=== PATIENT | female | born 1975 | race Caucasian/White ===

== ENCOUNTER → 2018-05-13 09:40 | Outpatient (CLI) | payer BC, SELFPAY ==
--- NOTE | 2018-05-13 09:45 | MM_ITS ---
MM Dig screening mamm BI w/CAD CAD Screening ORDERING PHYSICIAN : Missy Allen PATIENT AGE: 42 years GENDER: Female COMPARISON: Baseline mammogram with no previous for comparison. INDICATION: Baseline. No hormones. No new complaints. Noncontributory family history. TECHNIQUE: Standard CC and MLO images were obtained. R2 CAD reviewed. FINDINGS: Moderate breast density Moderately dense, heterogeneous breast tissue patterns bilaterally, with mild asymmetry. These decrease sensitivity mammography. RIGHT BREAST: Vague Area of focal increased density labeled X central right breast. Warrants spot views and ultrasound. It measures approximately 15 mm. May merely be summation shadow it a spot view should include CC, MLO and 90 degree image. .. LEFT BREAST: Dense left breast with no significant new features. Question some small calcifications centrally left breast seen on cc view. But these would benefit from spot views to determine if if persist and to further evaluate if so. They're not seen on current MLO view There is mild motion artifact both on the current left MLO view and right cc view. Which should be addressed by follow-up views as well IMPRESSION: ...... Dense breast tissue bilaterally decreases sensitivity of mammography 1. Right BREAST .. 1.5 cm vague area of increased density at the central right breast warrants spot views and ultrasound to further evaluate. May merely be summation shadow 2. Left BREAST .Motion artifact on current MLO view. It should be repeated . There is question some faint calcifications central left breast which would benefit from magnification CC and 90 degree view as well when the patient returns. BI-RADS Category: 0 Need Additional Imaging Evaluaiton RECOMMENDED FOLLOW-UP: IMM - IMMEDIATE FOLLOW-UP RECOMMENDED (A letter has been sent to the patient regarding results of the study.)
== END ==
PROVIDERS: Family Provider Family Medicine; PCP Family Medicine; Visit Provider Obstetrics & Gynecology
DX: Z12.31 Encounter for screening mammogram for malignant neoplasm of breast (principal)
CPT/HCPCS: 77067

== ENCOUNTER → 2021-08-02 10:32 | Outpatient (CLI) | payer BC, SELFPAY | PROVIDERS: PCP Family Medicine; Visit Provider Nurse Practitioner | DX: U07.1 COVID-19 (principal) | CPT/HCPCS: C9803; U0003; U0005 ==

== ENCOUNTER 2024-11-26 16:54 | Observation (INO) | payer BC, SELFPAY ==
[2024-11-26 17:29] VITALS: BP 130/60; PULSE 80; O2SAT 98
[2024-11-26 17:30] VITALS: BP 142/59; PULSE 78; O2SAT 95
[2024-11-26 17:34] VITALS: BP 130/60; PULSE 77; RESP 19; TEMP 36.5; O2SAT 97; BMI 29.0
--- NOTE | 2024-11-26 17:45 | HMH.EDGENADL ---
Discharge Plan Disposition Patient Disposition: Admitted Prescriptions Prescriptions: No Action diclofenac sodium [Voltaren] 1 % gel 4 g TOPICAL QID Qty: 30 2RF Rx Instructions: apply to single knee, ankle, foot; gently massage into area; for foot includes sole/toes/top of foot Referrals Follow up/Referrals: Provider,Referral, [Referring] - See instructions Clinical Impressions Clinical Impression: Abnormal uterine bleeding, Thickened endometrium, UTI (urinary tract infection) Instructions Patient Instructions: DI for Acute Abdominal Pain Print Language Print Language: Armenian Discharge ED Provider: Shahla Krause General Adult HPI <VICK Stevenson - Last Filed: 11/26/24 18:54> General Chief complaint: Abdominal Pain Stated complaint: abdominal pain Time Seen by Provider: 11/26/24 17:45 Mode of Arrival: Ambulatory Source of Information: Patient Limitations: No Limitations Description of Symptoms (Recalled from ER Triage Doc. by RN): c/o lower abdomen and back pain that started yesterday. Denies any difficulty with urination or frequency. STates the pain did go away for about 15 minutes then returned. 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 She has been irregular for the last 3 months and believes she is going through menopause. History of normal Pap smears in the past but stopped having Pap smears around COVID. Her [employer]IDENT[employer] doctor is in [place] she attempted to follow-up with her [employer]IDENTIAL [employer] TECHNICIAN doctor and he told her that it would be 6 months before she could be seen. She denies any urinary symptoms any purulent drainage or discharge from her vagina no fevers or chills. Pain is severe. PFSH <VICK Stevenson - Last Filed: 11/26/24 18:54> PFSH Disclaimer: The information contained in this section may have been updated after the patient was seen, as this information can be updated by other users. Social History Smoking Status: Former smoker alcohol intake: current alcohol intake frequency: holidays/special occasions only substance use type: denies use current occupational status: employed Travel in the last 8 weeks: None Have you lived/traveled outside [place] in past 30 days?: No Contact w/someone who lives/traveled outside US past 30 days?: No Exposure to someone with infectious disease in past 14 days?: No Do you have a fever (greater than 100.4 F or 38 C)?: No Have you tested positive for COVID-19: No Exposed to someone with COVID-19 in past 14 days?: No Do you have a sore throat?: No Do you have a cough?: No Do you have any weakness?: No Do you have any diarrhea?: No Are you experiencing any unusual bleeding?: No Do you have any muscle aches/pain?: No Do you have any abdominal pain?: Yes Are you experiencing loss of taste or smell?: No <VICK Stevenson - Last Filed: 11/26/24 18:54> ROS Obtained: Yes Systems reviewed as appropriate & no additional complaints except as documented Physical Exam <VICK Stevenson - Last Filed: 11/26/24 18:54> General General appearance: alert and in no apparent distress Head Head exam: atraumatic and normal inspection Eye Eye exam: Present normal appearance, PERRL and EOMI ENT ENT exam: Present normal exam, normal oropharynx and mucous membranes moist Neck Neck exam: Present normal inspection, full ROM and trachea midline; Absent lymphadenopathy Chest Chest inspection: Present normal inspection and symmetric chest wall rise Respiratory Respiratory exam: Present normal lung sounds bilaterally; Absent accessory muscle use Cardiovascular Cardiovascular exam: Present regular rate, normal rhythm, normal heart sounds, +S1 and +S2 Abdominal Exam Abdominal exam: Present soft and normal bowel sounds; Absent tenderness, guarding or rebound Extremities Exam Extremities exam: Present normal inspection and full ROM Neurological Exam Neurological exam: Present alert, oriented X3 and CN II-XII intact Psychiatric Psychiatric exam: Present normal affect and normal mood Skin Skin exam: Present warm, dry and normal color Lymphatic Lymphatic Findings: no adenopathy Medical Decision Making <VICK Stevenson - Last Filed: 11/26/24 18:54> Medical Records Screening: Per USPSTF and CDC recommendations, given the prevalence of disease in our region, it is our hospital?s policy to screen for HIV and viral Hepatitis for all patients aged 18 and over and those with ongoing risk factors. Vital Signs: 11/26/24 17:29 11/26/24 17:30 11/26/24 17:34 Temperature 97.7 F Temperature Source Oral Pulse Rate 80 78 Pulse Rate [Left Radial] 77 Respiratory Rate 19 Blood Pressure 130/60 142/59 H Blood Pressure [Right Arm] 130/60 Blood Pressure Mean [Right Arm] 83 02 Sat by Pulse Oximetry 98 95 97 Oxygen Delivery Method Room Air Lab Data Lab Results 11/26/24 17:35: WBC 8.7, RBC 4.30, Hgb 13.5, Hct 38.9, MCV 90.5, MCH 31.4 H, MCHC 34.7, RDW 12.1, Plt Count 266, MPV 10.4, Neut % (Auto) 80.4 H, Lymph % (Auto) 13.4, [place] % (Auto) 4.6, Eos % (Auto) 0.6, Baso % (Auto) 0.7, Neut # (Auto) 7.0, Lymph # (Auto) 1.2, [place] # (Auto) 0.4, Eos # (Auto) 0.1, Baso # (Auto) 0.1, Sodium 138, Potassium 3.7, Chloride 105, Carbon Dioxide 25, Anion Gap 11.7, BUN 11, Creatinine 0.70, Estimated Creat Clear 127, Estimated GFR 89, Est GFR ( Amer) 107, Glucose 135 H, Calcium 8.9, Total Bilirubin 0.4, AST 26, ALT 18, Alkaline Phosphatase 88, Total Protein 6.6, Albumin 4.2, Globulin 2.4, Albumin/Globulin Ratio 1.8, Serum HCG, Qual Negative, HIV Ag/Ab Combo Qual Negative 11/26/24 17:37: Urine Color Red, Urine Appearance Turbid, Urine pH 7.5, Ur Specific [place] 1.020, Urine Protein 3+ A, Urine Glucose (UA) Trace, Urine Ketones 1+, Urine Blood 3+ A, Urine Nitrate Positive A, Urine Bilirubin Negative, Urine Urobilinogen 4.0, Ur Leukocyte Esterase 2+ A, Urine RBC Tntc, Urine WBC 20-50, Ur Squamous Epith Cells Occasional, Urine Bacteria Trace 11/26/24 17:35 11/26/24 17:35 Orders (Tests/Meds): ED MEDICATIONS Generic Name Dose Route Start Last Admin Trade Name Minoo PRN Reason Stop Dose Admin Lactated Ringer's 1,000 mls @ 999 mls/hr 11/26/24 19:00 Lactated Ringer's 1000 Ml Bag IV 11/26/24 20:00 .Q1H1M CAT Sodium Chloride 10 ml 11/26/24 18:16 11/26/24 18:16 Sodium Chloride 0.9% 10ml Syr (Rad Only) IV 12/26/24 18:15 10 ml NEEDED PRN Administration Maintain IV Site Discontinued Medications Generic Name Dose Route Start Last Admin Trade Name Minoo PRN Reason Stop Dose Admin Iopamidol 75 ml 11/26/24 18:16 11/26/24 18:16 Iopamidol-370 (76%);100ml Bottle IV 11/26/24 18:17 75 ml ONCE ONE Administration Ketorolac Tromethamine 15 mg 11/26/24 17:52 11/26/24 17:59 Ketorolac 30mg/Ml Vial IV 11/26/24 17:53 15 mg ONCE ONE Administration Medroxyprogesterone Acetate 10 mg 11/26/24 18:57 Medroxyprogesterone Acetate 2.5mg Tablet PO 11/26/24 18:58 ONCE ONE Morphine Sulfate 4 mg 11/26/24 18:56 Morphine 4mg/Ml Syringe IV 11/26/24 18:57 ONCE ONE Ondansetron HCl 4 mg 11/26/24 18:56 Ondansetron 4mg/2ml Vial IV 11/26/24 18:57 ONCE ONE ORDERS Category Date Time Status CT abdomen pelvis w con Stat Cat Scan 11/26/24 17:52 Completed Complete Blood Count Auto Diff Stat Lab 11/26/24 17:35 Completed Comprehensive Metabolic Panel Stat Lab 11/26/24 17:35 Completed HCG Qualitative, Serum Stat Lab 11/26/24 17:35 Completed HIV Combo Stat Lab 11/26/24 17:35 Completed Hepatitis C Ab Qual. W/ RFX Stat Lab 11/26/24 17:35 Received UA [Urinalysis and Microscopic] Stat Lab 11/26/24 17:37 Completed Urine Culture Stat Micro 11/26/24 17:37 Received Medical Decision Narrative: In summary patient is a [age, sex] who presents to the emergency department for evaluation of [complaint]. Patient is [hemodynamically stable/unstable] upon arrival, [febrile/afebrile]. [Unremarkable physical exam, nonfocal exam versus focal remarkable exam]. Differential diagnosis includes [DDx]. Initial workup will be conducted with [hematologic labs, imaging, respiratory swab, describe workup]. Initial interventions include [crystalloid bolus, medications, p.o. challenge, etc.] initial workup reviewed by me [hematologic labs are remarkable for... Imaging remarkable for... Urinalysis remarkable for]. Upon repeat evaluation [patient had acceptable resolution of symptoms, had persistent pain for which additional interventions were conducted (describe interventions), tolerated p.o., was ambulatory, etc.]. Given this [patient is appropriate for discharge at this time and will be discharged with a prescription for... The case was discussed with hospital medicine regarding management and they will admit the patient their service for continued evaluation at this time... Etc.] Places where you can increase complexity: I informally interpreted the patient's chest x-ray or CT read and is remarkable for... Documenting what the pvc monitor shows with rate and rhythm Consideration of test but deferring. Ex: I considered chest x-ray on this patient however given that they have no oxygen requirement and are clear to auscultation all lung parsons will be deferred. Social determinants of health: Given that patient is undomiciled increases complexity. Given that patient has polysubstance abuse compounds all aspects of care <Shahla Krause MD - Last Filed: 11/26/24 19:05> Arpit Inquiry Pt receiving controlled substance: No Vital Signs: 11/26/24 17:29 11/26/24 17:30 11/26/24 17:34 Temperature 97.7 F Temperature Source Oral Pulse Rate 80 78 Pulse Rate [Left Radial] 77 Respiratory Rate 19 Blood Pressure 130/60 142/59 H Blood Pressure [Right Arm] 130/60 Blood Pressure Mean [Right Arm] 83 02 Sat by Pulse Oximetry 98 95 97 Oxygen Delivery Method Room Air Lab Data Lab results reviewed: Yes I reviewed the patient's lab results. Lab Results 11/26/24 17:35: WBC 8.7, RBC 4.30, Hgb 13.5, Hct 38.9, MCV 90.5, MCH 31.4 H, MCHC 34.7, RDW 12.1, Plt Count 266, MPV 10.4, Neut % (Auto) 80.4 H, Lymph % (Auto) 13.4, [place] % (Auto) 4.6, Eos % (Auto) 0.6, Baso % (Auto) 0.7, Neut # (Auto) 7.0, Lymph # (Auto) 1.2, [place] # (Auto) 0.4, Eos # (Auto) 0.1, Baso # (Auto) 0.1, Sodium 138, Potassium 3.7, Chloride 105, Carbon Dioxide 25, Anion Gap 11.7, BUN 11, Creatinine 0.70, Estimated Creat Clear 127, Estimated GFR 89, Est GFR ( Amer) 107, Glucose 135 H, Calcium 8.9, Total Bilirubin 0.4, AST 26, ALT 18, Alkaline Phosphatase 88, Total Protein 6.6, Albumin 4.2, Globulin 2.4, Albumin/Globulin Ratio 1.8, Serum HCG, Qual Negative, HIV Ag/Ab Combo Qual Negative 11/26/24 17:37: Urine Color Red, Urine Appearance Turbid, Urine pH 7.5, Ur Specific [place] 1.020, Urine Protein 3+ A, Urine Glucose (UA) Trace, Urine Ketones 1+, Urine Blood 3+ A, Urine Nitrate Positive A, Urine Bilirubin Negative, Urine Urobilinogen 4.0, Ur Leukocyte Esterase 2+ A, Urine RBC Tntc, Urine WBC 20-50, Ur Squamous Epith Cells Occasional, Urine Bacteria Trace Orders (Tests/Meds): ED MEDICATIONS Generic Name Dose Route Start Last Admin Trade Name Freq PRN Reason Stop Dose Admin Lactated Ringer's 1,000 mls @ 999 mls/hr 11/26/24 19:00 Lactated Ringer's 1000 Ml Bag IV 11/26/24 20:00 .Q1H1M CAT Sodium Chloride 10 ml 11/26/24 18:16 11/26/24 18:16 Sodium Chloride 0.9% 10ml Syr (Rad Only) IV 12/26/24 18:15 10 ml NEEDED PRN Administration Maintain IV Site Discontinued Medications Generic Name Dose Route Start Last Admin Trade Name Freq PRN Reason Stop Dose Admin Iopamidol 75 ml 11/26/24 18:16 11/26/24 18:16 Iopamidol-370 (76%);100ml Bottle IV 11/26/24 18:17 75 ml ONCE ONE Administration Ketorolac Tromethamine 15 mg 11/26/24 17:52 11/26/24 17:59 Ketorolac 30mg/Ml Vial IV 11/26/24 17:53 15 mg ONCE ONE Administration Medroxyprogesterone Acetate 10 mg 11/26/24 18:57 Medroxyprogesterone Acetate 2.5mg Tablet PO 11/26/24 18:58 ONCE ONE Morphine Sulfate 4 mg 11/26/24 18:56 Morphine 4mg/Ml Syringe IV 11/26/24 18:57 ONCE ONE Ondansetron HCl 4 mg 11/26/24 18:56 Ondansetron 4mg/2ml Vial IV 11/26/24 18:57 ONCE ONE ORDERS Category Date Time Status CT abdomen pelvis w con Stat Cat Scan 11/26/24 17:52 Completed Complete Blood Count Auto Diff Stat Lab 11/26/24 17:35 Completed Comprehensive Metabolic Panel Stat Lab 11/26/24 17:35 Completed HCG Qualitative, Serum Stat Lab 11/26/24 17:35 Completed HIV Combo Stat Lab 11/26/24 17:35 Completed Hepatitis C Ab Qual. W/ RFX Stat Lab 11/26/24 17:35 Received UA [Urinalysis and Microscopic] Stat Lab 11/26/24 17:37 Completed Urine Culture Stat Micro 11/26/24 17:37 Received Medical Decision Narrative: Patient with above history and physical. With significant lower back pain and abdominal discomfort CT scan was performed to rule out any type of intra abdominal pathology that would be surgical in nature or require intervention such as kidney stone bowel obstruction intra-abdominal abscess etc. CT scan was performed and I personally interpreted this which shows a very thickened endometrial lining maximal thickness about 33 mm at the superior dome on the inferior margin of the uterus. There is fluid-filled uterus consistent with her history of bleeding. Clinically I do not think this is endometritis she also recently has not been and has no other signs or symptoms of infectious process at this point. She states that she has been bleeding through a pad every 30 minutes. With this brisk amount of bleeding in the amount of pain that she is in currently as well as the abnormal CT scan I discussed the case with Dr. Flanagan and she gave us 3 options. First was to start some oral medications and have her follow-up closely outpatient second would be possible IV estrogen versus IV medroxyprogesterone to be followed by inpatient D&C in the morning. I discussed this with the patient and given the amount of pain that she is and she wished to be admitted also with a concern of possible cancer which is unlikely but remains on the differential she would like to go ahead and get evaluated sooner rather than later. Therefore she will be placed in the hospital n.p.o. at midnight Dr. Shields likely will take her to the operating room around 7:30 in the morning. Patient is agreeable to this plan. Specifically she wanted 10 mg of Provera to be given in the ED. Additional pain medicine has also been administered. Of note patient does have urine that appears to be infected but could be locally inflamed from the uterus itself could be contaminant but we will go ahead and treat with a dose of Zosyn as uterine infection has not been definitively ruled out at this point. Critical Care <Shahla Krause MD - Last Filed: 11/26/24 19:05> Critical Care Time Critical Care Time: Yes Attestation: On 11/26/24, the high probability of a clinically significant, sudden or life threatening deterioration of the following system(s) required my full and direct attention, intervention and personal management. The time I documented below is in addition to time spent performing reported procedures but includes the following listed in this critical care notation. Total Time Total Critical Care Time: 35
--- NOTE | 2024-11-26 17:52 | CT_ITS ---
PROCEDURE INFORMATION: Exam: CT Abdomen And Pelvis With Contrast Exam date and time: 11/26/2024 6:12 PM Age: 49 years old Clinical indication: Abdominal pain; Additional info: Acute abdominal pain, vaginal bleeding TECHNIQUE: Imaging protocol: Computed tomography of the abdomen and pelvis with contrast. Radiation optimization: All CT scans at this facility use at least one of these dose optimization techniques: automated exposure control; mA and/or kV adjustment per patient size (includes targeted exams where dose is matched to clinical indication); or iterative reconstruction. Contrast material: ISOVUE; Contrast volume: 75 ml; Contrast route: IV; COMPARISON: No relevant prior studies available. FINDINGS: Liver: Decreased density throughout the liver compatible with hepatic steatosis. Hypodensities within the liver too small to characterize. Gallbladder and biliary ducts: Gallbladder unremarkable Pancreas: Pancreas unremarkable Spleen: Splenic granuloma Adrenal glands: Adrenal glands unremarkable. Kidneys and ureters: Punctate nonobstructing calculus lower pole left kidney. No hydronephrosis. Stomach and bowel: Unremarkable. No obstruction. No mucosal thickening. Appendix: Appendix unremarkable Intraperitoneal space: Unremarkable. No free air. No significant fluid collection. Vasculature: Unremarkable. No abdominal aortic aneurysm. Lymph nodes: Unremarkable. No enlarged lymph nodes. Urinary bladder: Unremarkable as visualized. Reproductive: Prominent fluid collection in the region of the lower uterine segment and cervix. Findings compatible with history of vaginal bleeding. Mild irregularity of the endometrium in the region of the fundus. A mass could not be entirely excluded. Recommend follow-up with combined transabdominal and endovaginal sonography. Alternatively consider magnetic resonance imaging for further evaluation. Bones/joints: Unremarkable. No acute fracture. Soft tissues: Fat filled umbilical hernia IMPRESSION: 1. Prominent fluid collection in the region of the lower uterine segment and cervix. Findings compatible with history of vaginal bleeding. 2. Mild irregularity of the endometrium in the region of the fundus. A mass could not be entirely excluded. Recommend follow-up with combined transabdominal and endovaginal sonography. Alternatively consider magnetic resonance imaging for further evaluation.
[2024-11-26 17:55] LABS: Microscopic, Urine URINE MICROSCOPIC (MICROSCOPIC)
[2024-11-26 17:56] LABS: Basophils # 0.1 K/mm3 (0-0.2); Basophils % 0.7 % (0.1-2.0); Eosinophils # 0.1 K/mm3 (0.0-0.4); Eosinophils % 0.6 % (0.1-12.0); Hematocrit 38.9 % (37.0-47.0); Hemoglobin 13.5 g/dL (12.2-16.2); Lymphocytes # 1.2 K/mm3 (0.7-4.5); Lymphocytes % 13.4 % (10-50); Mean Corpuscular HGB Conc 34.7 g/dL (31.8-35.4); Mean Corpuscular Hemoglobin 31.4 pg (27.0-31.2); Mean Corpuscular Volume 90.5 fl (81-99); Mean Platelet Volume 10.4 fl (7.4-10.4); Monocytes # 0.4 K/mm3 (0.1-1.0); Monocytes % 4.6 % (1.7-9.3); Neutrophils % 80.4 % (37.0-80.0); Platelet Count 266 K/mm3 (142-424); Red Cell Distribution Width 12.1 % (11.5-17.5); White Blood Count 8.7 K/mm3 (4.8-10.8)
[2024-11-26] MEDS: KETOROLAC 30MG/ML VIAL 15 MG IV (17:59)
[2024-11-26 18:09] LABS: Bilirubin,Urine Negative (Negative); Blood, Urine 3+ (Negative); Glucose,Urine (UA) TRACE (Negative); Ketones,Urine 1+ (Negative); Leukocyte Esterase,Urine 2+ (Negative); Nitrate,Urine POSITIVE (Negative); PH,Urine 7.5 (5.0-8.5); Protein,Urine 3+ (Negative)
[2024-11-26 18:10] LABS: Chloride 105 mmol/L (98-107)
[2024-11-26 18:11] LABS: Albumin Level 4.2 g/dl (3.5-5.0); Potassium 3.7 mmoL/L (3.5-5.1); Sodium 138 mmol/L (136-145)
[2024-11-26 18:13] LABS: Blood Urea Nitrogen 11 mg/dl (7-17); Creatinine Clearance Estimated 127 mL/min (50-200); Estimated Glomerular Filt Rate 89 ml/min (>60); GFR (African American) 107 ML/MIN (>60)
[2024-11-26 18:14] LABS: Alanine Aminotransferase 18 U/L (12-78); Albumin/Globulin Ratio 1.8 (1.1-1.8); Alkaline Phosphatase 88 U/L (38-126); Anion Gap 11.7 mEq/L (5-15); Aspartate Amino Transferase 26 U/L (14-36); Bilirubin,Total 0.4 mg/dl (0.2-1.3); Calcium 8.9 mg/dl (8.4-10.2); Carbon Dioxide 25 mmol/L (22.0-30.0); Globulin 2.4 g/dL (1.3-3.2); Glucose 135 mg/dl (74-100); Total Protein,Serum 6.6 g/dl (6.3-8.2)
[2024-11-26] MEDS: SODIUM CHLORIDE 0.9% 10ML SYR (RAD ONLY) 10 ML IV (18:16)
[2024-11-26] MEDS: IOPAMIDOL-370 (76%);100ML BOTTLE 75 ML IV (18:16)
[2024-11-26 18:19] LABS: Appearance,Urine Turbid (Clear); Color,Urine Red (Yellow)
[2024-11-26 18:22] LABS: Bacteria,Urine Trace /lpf; RBC,Urine TNTC #/hpf (0-3); Squamous Epithelial Cell,Urine Occasional #/hpf (0-5); WBC,Urine 20-50 #/hpf (0-3)
[2024-11-26 18:40] LABS: HCG Qualitative, Serum Negative (Negative)
--- NOTE | 2024-11-26 18:45 | PC.NURSE ---
MD speaking with OB
[2024-11-26 18:55] LABS: HIV Combo NEGATIVE (Negative)
[2024-11-26 19:03] LABS: Hepatitis C Ab Qual. W/ RFX NEGATIVE (Negative)
[2024-11-26] MEDS: ONDANSETRON 4MG/2ML VIAL 4 MG IV (19:30)
[2024-11-26] MEDS: PIPERCILLIN/TAZO 3.375 GM in 0.9 % SODIUM CHLORIDE 50 ML IV (19:30)
[2024-11-26] MEDS: LACTATED RINGERS 1000ML 1,000 ML 999 ML IV (19:30)
[2024-11-26] MEDS: MORPHINE 4MG/ML SYRINGE 4 MG IV (19:30)
--- NOTE | 2024-11-26 19:33 | PC.NURSE ---
report called to WILLAM Phoenix
[2024-11-26 19:59] VITALS: BP 142/59; PULSE 80; RESP 18; TEMP 36.6; O2SAT 99
--- NOTE | 2024-11-26 20:02 | INFXCTL.NOTE ---
Patient arrived to the unit at this time.
[2024-11-26] MEDS: MEDROXYPROGESTERONE ACETATE 2.5MG TABLET 10 MG PO (20:19)
[2024-11-26] MEDS: ACETAMINOPHEN 500MG TAB 1000 MG PO (20:23)
[2024-11-26] MEDS: LACTATED RINGERS 1000ML 1,000 ML 125 ML IV (20:25)
[2024-11-26 20:44] VITALS: O2SAT 97; BMI 29.0
[2024-11-26 20:46] VITALS: BP 128/50; PULSE 67; RESP 15; TEMP 36.6; O2SAT 97
[2024-11-27] VITALS (9 sets, daily range): BP systolic 103–142; BP diastolic 50–89; PULSE 66–85; RESP 14–16; TEMP 36.2–37; O2SAT 91–100
[2024-11-27] MEDS: LACTATED RINGERS 1000ML 1,000 ML 125 ML IV (04:31)
--- NOTE | 2024-11-27 05:40 | PC.NURSE ---
Patient easily aroused for labs and to prepare for surgery this morning. Patient denies any pain. No pads reported throughout the night. Patient bowel sounds are active, lung sounds clear throughout bilaterally.
[2024-11-27 05:48] LABS: Basophils # 0.1 K/mm3 (0-0.2); Basophils % 0.7 % (0.1-2.0); Eosinophils # 0.1 K/mm3 (0.0-0.4); Eosinophils % 0.8 % (0.1-12.0); Hematocrit 35.3 % (37.0-47.0); Hemoglobin 12.2 g/dL (12.2-16.2); Lymphocytes # 1.6 K/mm3 (0.7-4.5); Lymphocytes % 21.3 % (10-50); Mean Corpuscular HGB Conc 34.6 g/dL (31.8-35.4); Mean Corpuscular Hemoglobin 31.3 pg (27.0-31.2); Mean Corpuscular Volume 90.5 fl (81-99); Mean Platelet Volume 10.3 fl (7.4-10.4); Monocytes # 0.4 K/mm3 (0.1-1.0); Monocytes % 5.4 % (1.7-9.3); Neutrophils # 5.4 K/mm3 (1.8-7.8); Neutrophils % 71.5 % (37.0-80.0); Platelet Count 229 K/mm3 (142-424); Red Cell Distribution Width 12.1 % (11.5-17.5); White Blood Count 7.6 K/mm3 (4.8-10.8)
[2024-11-27 05:57] LABS: Alanine Aminotransferase 15 U/L (12-78); Albumin Level 3.5 g/dl (3.5-5.0); Albumin/Globulin Ratio 1.5 (1.1-1.8); Alkaline Phosphatase 63 U/L (38-126); Anion Gap 8.5 mEq/L (5-15); Aspartate Amino Transferase 21 U/L (14-36); Bilirubin,Total 0.4 mg/dl (0.2-1.3); Blood Urea Nitrogen 7 mg/dl (7-17); Calcium 8.7 mg/dl (8.4-10.2); Carbon Dioxide 25 mmol/L (22.0-30.0); Chloride 106 mmol/L (98-107); Creatinine Clearance Estimated 145 mL/min (50-200); Estimated Glomerular Filt Rate 106 ml/min (>60); GFR (African American) 128 ML/MIN (>60); Globulin 2.3 g/dL (1.3-3.2); Glucose 98 mg/dl (74-100); Potassium 3.5 mmoL/L (3.5-5.1); Sodium 136 mmol/L (136-145); Total Protein,Serum 5.8 g/dl (6.3-8.2)
--- NOTE | 2024-11-27 06:58 | PC.NURSE ---
Patient off unit at this time. Patient to OR.
--- NOTE | 2024-11-27 07:01 | EXP.HP ---
History of Present Illness *Admission Date: 11/26/24 *Reason for visit:: Abnormal uterine bleeding *History of present illness: Ms Olegario Hernandez is 49 yo P2013 who presented to [facility] ED with complaint of heavy, painful uterine bleeding. Bleeding started on Saturday and was light. Bleeding progressively became heavier and afternoon she experienced gushes of blood accompanied by severe contraction like pain and back pain. At times she was soaking a pad in 30 minutes. She admits to associated light headedness with the gushes of blood. Her last period prior to this was about 4-5 months ago and was heavy for about one day. Prior to the past 6-12 months her periods were regular, monthly. She admits she never really kept track of them because they were so regular, predictable. Denies past medical history. Surgical history signficant for x 2 and elective x 1. CT abdomen/pelvis demonstrated prominent fluid collection in the region of the lower uterine segment and cervix. Findings compatible with history of vaginal bleeding. 2. Mild irregularity of the endometrium in the region of the fundus. A mass could not be entirely excluded. ED physician measure endometrial thickness to be about [address] Vital signs stable. Hgb 12.2. WBC normal. Urine + nitrites [facility] Disclaimer: The information contained in this section may have been updated after the patient was seen, as this information can be updated by other users. Medical History (Updated 11/27/24 @ 07:12 by Lotus Flanagan DO) Hx of Surgical History (Updated 11/26/24 @ 20:39 by Allyson Larios RN) Hx of section Family History (Updated 11/26/24 @ 20:39 by Allyson Larios RN) Other Afib Family history of stroke Heart disease Social History (Updated 11/26/24 @ 20:39 by Allyson Larios RN) Smoking Status: Never smoker alcohol intake: current alcohol intake frequency: holidays/special occasions only substance use type: denies use current occupational status: employed Travel in the last 8 weeks: None do you feel safe at home: Yes victim of physical abuse: No victim of emotional abuse: No victim of sexual abuse: No Have you lived/traveled outside US in past 30 days?: No Contact w/someone who lives/traveled outside US past 30 days?: No Exposure to someone with infectious disease in past 14 days?: No Do you have a fever (greater than 100.4 F or 38 C)?: No Have you tested positive for COVID-19: No Exposed to someone with COVID-19 in past 14 days?: No Do you have a sore throat?: No Do you have a cough?: No Do you have any weakness?: No Are you experiencing any nausea/vomitting?: No Do you have any diarrhea?: No Are you experiencing any unusual bleeding?: No Do you have any muscle aches/pain?: No Do you have any abdominal pain?: No Are you experiencing loss of taste or smell?: No Other Medical History Have you received the Flu Vaccine for this season: No Have you received the Pneumonia Vaccine: No Review of Systems Review of Systems Review of systems:: pertinent systems reviewed and negative unless documented below *Genitourinary Genitourinary: Reports other (abnormal uterine bleeding) Meds Home Medications and Allergies Home Medications ?Medication ?Instructions ?Recorded ?Confirmed ?Type levocetirizine 5 mg tablet 5 mg PO DAILY PRN Allergy Symptoms 11/26/24 11/26/24 History New Prescriptions to Start Prescriptions: Allergies Allergy/AdvReac Type Severity Reaction Status Date / Time No Known Allergies Allergy Verified 02/03/19 08:24 Exam Data for Last 24 hours Vital signs and Labs for Last 24 Hours: Temp Pulse Resp BP Pulse Ox O2 Del Method 98.6 F 67 15 142/50 H 100 Room Air 11/27/24 05:41 11/27/24 05:41 11/27/24 05:41 11/27/24 05:41 11/27/24 05:41 11/27/24 06:43 Laboratory Results - last 24 hr 11/26/24 17:35: WBC 8.7, RBC 4.30, Hgb 13.5, Hct 38.9, MCV 90.5, MCH 31.4 H, MCHC 34.7, RDW 12.1, Plt Count 266, MPV 10.4, Neut % (Auto) 80.4 H, Lymph % (Auto) 13.4, [place] % (Auto) 4.6, Eos % (Auto) 0.6, Baso % (Auto) 0.7, Neut # (Auto) 7.0, Lymph # (Auto) 1.2, [place] # (Auto) 0.4, Eos # (Auto) 0.1, Baso # (Auto) 0.1, Sodium 138, Potassium 3.7, Chloride 105, Carbon Dioxide 25, Anion Gap 11.7, BUN 11, Creatinine 0.70, Estimated Creat Clear 127, Estimated GFR 89, Est GFR ( Amer) 107, Glucose 135 H, Calcium 8.9, Total Bilirubin 0.4, AST 26, ALT 18, Alkaline Phosphatase 88, Total Protein 6.6, Albumin 4.2, Globulin 2.4, Albumin/Globulin Ratio 1.8, Serum HCG, Qual Negative, HCV Ab TAMY w/Rflx PCR Qn Negative, HIV Ag/Ab Combo Qual Negative 11/26/24 17:37: Urine Color Red, Urine Appearance Turbid, Urine pH 7.5, Ur Specific [place] 1.020, Urine Protein 3+ A, Urine Glucose (UA) Trace, Urine Ketones 1+, Urine Blood 3+ A, Urine Nitrate Positive A, Urine Bilirubin Negative, Urine Urobilinogen 4.0, Ur Leukocyte Esterase 2+ A, Urine RBC Tntc, Urine WBC 20-50, Ur Squamous Epith Cells Occasional, Urine Bacteria Trace 11/27/24 05:30: WBC 7.6, RBC 3.90 L, Hgb 12.2, Hct 35.3 L, MCV 90.5, MCH 31.3 H, MCHC 34.6, RDW 12.1, Plt Count 229, MPV 10.3, Neut % (Auto) 71.5, Lymph % (Auto) 21.3, [place] % (Auto) 5.4, Eos % (Auto) 0.8, Baso % (Auto) 0.7, Neut # (Auto) 5.4, Lymph # (Auto) 1.6, [place] # (Auto) 0.4, Eos # (Auto) 0.1, Baso # (Auto) 0.1, Sodium 136, Potassium 3.5, Chloride 106, Carbon Dioxide 25, Anion Gap 8.5, BUN 7 D, Creatinine 0.60, Estimated Creat Clear 145, Estimated GFR 106, Est GFR ( Amer) 128, Glucose 98 D, Calcium 8.7, Total Bilirubin 0.4, AST 21, ALT 15, Alkaline Phosphatase 63, Total Protein 5.8 L, Albumin 3.5 D, Globulin 2.3, Albumin/Globulin Ratio 1.5 I & O for Last 24 hours: Intake & Output 11/24/24 11/25/24 11/26/24 11/27/24 23:59 23:59 23:59 23:59 Output Total 0 / 0 Balance 0 / 0 Weight 180 lb 4 oz Constitutional Constitutional: no acute distress and cooperative *Routine HEENT Exam Head: Present normocephalic and atraumatic Eye: Absent conjunctivae pink ENT: Present mucous membranes moist *Routine Neck Exam Neck: Present full ROM *Routine Respiratory Exam Respiratory: Present CTA bilaterally and normal respiratory effort *Routine Cardiovascular Exam Cardiovascular: Present RRR *Routine Abdominal Exam Abdominal: Present soft; Absent tenderness or distended *Routine Rectal Exam Rectal:: deferred *Routine Genitalia Exam Genitalia:: normal female *Routine Extremities Exam Extremities: Present full ROM; Absent edema or calf tenderness *Routine Neurological Exam Neurological: Present alert, moving all extremities and normal speech Routine Psychiatric Exam Psychiatric: Present normal affect and cooperative Assessment and Plan *Assessment and plan (1) Abnormal uterine bleeding: Status: Acute Category: Medical Code(s): N93.9 - Abnormal uterine and vaginal bleeding, unspecified (2) Thickened endometrium: Status: Acute Category: Medical Code(s): R93.89 - Abnormal findings on diagnostic imaging of other specified body structures (3) UTI (urinary tract infection): Status: Acute Category: Medical Code(s): N39.0 - Urinary tract infection, site not specified Plan She was admitted overnight for observation and pad counts She received Provera 10 mg PO x 1 dose. She reports light bleeding this morning AM labs pending She received Zosyn in the ED. Will start Macrobid 100 mg PO BID x 7 days for UTI and will call her with urine culture results NPO at midnight To OR for D&C, possible hysteroscopy depending on amount of bleeding Discussed surgery in detail. Discussed risks, benefits, alternatives, expectations and possible complications of surgery. Risks include but are not limited to bleeding; infection; uterine perforation; damage to adjacent structures (bowel, bladder, nerves, blood vessels, etc) (possibly requiring further intervention and/or longer hospital stay); VTE; risks with anesthesia; and risk of . All questions addressed and answered. Patient voiced understanding of risks and possible complications. Patient desires to proceed with surgery. Consent form signed.
--- NOTE | 2024-11-27 07:18 | P.PNANES_ITS ---
[facility] Disclaimer: The information contained in this section may have been updated after the patient was seen, as this information can be updated by other users. Medical History Hx of Surgical History Hx of section Family History Other Afib Family history of stroke Heart disease Social History Smoking Status: Never smoker alcohol intake: current alcohol intake frequency: holidays/special occasions only substance use type: denies use current occupational status: employed Travel in the last 8 weeks: None do you feel safe at home: Yes victim of physical abuse: No victim of emotional abuse: No victim of sexual abuse: No Have you lived/traveled outside US in past 30 days?: No Contact w/someone who lives/traveled outside US past 30 days?: No Exposure to someone with infectious disease in past 14 days?: No Do you have a fever (greater than 100.4 F or 38 C)?: No Have you tested positive for COVID-19: No Exposed to someone with COVID-19 in past 14 days?: No Do you have a sore throat?: No Do you have a cough?: No Do you have any weakness?: No Are you experiencing any nausea/vomitting?: No Do you have any diarrhea?: No Are you experiencing any unusual bleeding?: No Do you have any muscle aches/pain?: No Do you have any abdominal pain?: No Are you experiencing loss of taste or smell?: No [facility] Anesthesia Checklist Patient Identification Patient Identification: Arm Band and Verbal (Name & ) Structural Data Admitted From: Inpatient Planned Operative Procedure/s: D & C Consent for Planned Operative Procedure(s) Verified: Yes Verified Documents: Surgical Consent and History and Physical NPO Status Verified Time NPO: 00:00 Additional verifications Anesthesia Reactions: No Airway Assessment Mallampati Score:: Class II C-Spine Mobility Assessed: Yes TMJ Mobility Assessed: Yes Dentition: Good Dentition Neurological Assessment Level of Consciousness: Awake Hx Seizures: No Numbness or tingling in extremities: No Anesthesia Plan Anesthesia Risk discussed: Yes ASA Class: II Anesthesia Type: General
--- NOTE | 2024-11-27 07:52 | P.PNANES_ITS ---
[facility] Anesthesia Record Part I Anesthesia Record I Intake, IV Amount: 700 Hydration: Adequate Estimated blood loss (mL): 100 Urine output (mL): 0 Blood Pressure: 103/89 SaO2: 91 Pulse Rate: 66 Airway Patency: Patent Respiratory Rate: 14 Temperature: 97.2 F Patient is:: Drowsy Stable to PACU at:: 09:50
--- NOTE | 2024-11-27 08:24 | P.OP_ITS ---
Date of procedure: 11/27/24 Pre-op Diagnosis:: 1. Abnormal uterine bleeding 2. Thickened endometrium 3. UTI Post-op Diagnosis:: 1. Abnormal uterine bleeding 2. Thickened endometrium 3. UTI 4. Enlarged uterus Procedure performed:: Dilation and Curettage Surgeon:: Lotus Flanagan DO Stove Polisher(s):: N/a STRIPPING SHOVEL OILER:: Radha oWrley Anesthesia: GETA Estimated blood loss (mL): 100 Clinical Note:: Ms Olegario Hernandez is 49 yo P2013 who presented to [facility] ED with complaint of heavy, painful uterine bleeding. Bleeding started on Saturday and was light. Bleeding progressively became heavier and afternoon she experienced gushes of blood accompanied by severe contraction like pain and back pain. At times she was soaking a pad in 30 minutes. She admits to associated light headedness with the gushes of blood. Her last period prior to this was about 4-5 months ago and was heavy for about one day. Prior to the past 6-12 months her periods were regular, monthly. She admits she never really kept track of them because they we re so regular, predictable. Denies past medical history. Surgical history signficant for x 2 and elective x 1. CT abdomen/pelvis demonstrated prominent fluid collection in the region of the lower uterine segment and cervix. Findings compatible with history of vaginal bleeding. 2. Mild irregularity of the endometrium in the region of the fundus. A mass could not be entirely excluded. ED physician measure endometrial thickness to be about [address] Vital signs stable. Hgb 12.2. WBC normal. Urine + nitrites Operative findings:: 1. On bimanual exam, enlarged anteverted uterus. No adnexal masses palpated 2. Large amount of dark thomas/purplish appearing tissue with dark red blood and clots oozing from cervical os before and during procedure Operative note:: Risks, benefits and alternatives were discussed with the patient. Risks include but are not limited to bleeding, infection, uterine perforation and VTE. Patient voiced understanding and agreed to proceed. She was wheeled back to the operating room and placed under general anesthesia without difficulty. She was placed in dorsal lithotomy position and prepped and draped in the normal sterile fashion. Straight catheter was used to drain the bladder. A bimanual exam was performed. A Deavor retractor was placed in the vaginal vault. Single tooth tenaculum was placed on anterior lip of the cervix. Uterus sounded to 14. Cervix was dilated. No further dilation was needed. A medium size sharp curette was inserted through the cervix into the uterine cavity and endometrium was curetted with a systematic back and forth movement in a 360 degree manner. All endometrial curettings will be sent to pathology for review. See findings above. Instruments were removed from the vagina. Tenaculum site was noted to oozing. Silver nitrate stick x 1 applied to tenaculum site. Hemostasis was noted. Patient was awaken from anesthesia without difficulty. She was transported to recovery room in stable condition. Patient will be discharged home when awake and ambulating. She was given postop instructions as well as instructions to follow-up in the office in 2 weeks or sooner if needed. Condition: stable Disposition: same day Specimens:: 1. Endometrial curettings Complications:: None
--- NOTE | 2024-11-30 10:22 | SW/DCPLANNER ---
Spoke with patient on the phone. Patient stated that she is doing great. Patient stated that she hasnt had to take any of her pain meds since discharge. Patient stated that she is aware of her upcoming appointment with Dr kimball. Patient stated that she was able to pick her medicine up from [facility] on the day of discharge. Patient stated that she has no concerns or questions at this time. Kayla Garcia
--- NOTE | 2024-11-30 13:16 | P.PNANES_ITS ---
[facility] Anesthesia Record Part II Anesthesia Record Part II Discharge Time: 08:20 Destination: Surgical Day Care (OP Surgery) PACU nurse assessment reviewed?: Yes Patient Condition:: Good Anesthesia Complications:: None Swallowing reflex intact?: Yes Airway Patency: Patent Cyanosis?: No Blood Pressure: 131/80 SaO2: 95 Respiratory Rate: 16 Pulse Rate: 72 Temperature: 97.2 F Mental Status: Alert & Oriented Pain level:: 0 Nausea and/or vomitting:: None Intake, IV Amount: 0 Hydration: Adequate
[2024-11-30 13:17] VITALS: BP 131/80; PULSE 72; RESP 16; TEMP 36.2; O2SAT 95
== END 2024-11-27 08:50 | disposition home or self-care (01) ==
LOC: ER 18:58 → OB 19:15
PROVIDERS: Physician Assistant; Admitting Provider Obstetrics & Gynecology; Emergency Provider Student in an Organized Health Care Education/Training Program; PCP Family Medicine; Visit Provider Obstetrics & Gynecology
PROC: (CPT 58120; principal; 2024-11-27 07:15)
DX: N93.8 Other specified abnormal uterine and vaginal bleeding (principal); N39.0 Urinary tract infection, site not specified; R93.89 Abnormal findings on diagnostic imaging of other specified body structures; N85.2 Hypertrophy of uterus
CPT/HCPCS: 58120; 74177; 80053; 81001; 84703; 85025; 86803; 87086; 87389; 99291; G0378; J1100; J1885; J2250; J2270; J2405; J2543; J3010; J7120; Q9967

== ENCOUNTER 2025-07-29 07:53 | Outpatient (CLI) | payer BC, SELFPAY ==
--- NOTE | 2025-07-29 08:00 | US_ITS ---
PROCEDURE: US TRANSVAGINAL CLINICAL INDICATION: abnormal bleeding COMPARISON: CT CT ABDOMEN PELVIS W CON from 11/26/2024 FINDINGS: Transvaginal and transabdominal sonographic images of the pelvis were obtained. UTERUS: 9.3cm x 7.5 cmx 5.7 cm anteverted with a combined endometrial thickness of 23mm. A scar containing fluid is seen. Nabothian cyst measuring 1.0 cm is seen in the cervix. Fibroid 1. Anterior measuring 1.3 cm x 0.8 cm x 0.9 cm Fibroid 2. Anterior measuring 1.1 cm x 0.8 cm x 1.3 cm. Fibroid 3. Left anterior measuring 2.4 cm x 2.8 cm x 3.1 cm LEFT OVARY: Not visualized. RIGHT OVARY: Not visualized Both ovaries are not seen. There is no fluid in the cul-de-sac. IMPRESSION: 1. Anteverted and axial bulky uterus. There are least 3 fibroids seen that measure up to 3.1 cm in size. 2. The endometrium is difficult to visualize but appears thickened and measures up to 23 mm. Suggest endometrial sampling. 3. There is a small amount of fluid within the scar. 4. The ovaries were not seen transvaginally or transabdominally. 5. No fluid in the cul-de-sac. Dictated by: Allan Young MD 07/30/2025 08:48 Allan Young MD in OV 07/30/2025 08:48
== END 2025-07-29 23:59 | disposition home or self-care (01) ==
LOC: RAD 07:53
PROVIDERS: PCP Family Medicine; Visit Provider Obstetrics & Gynecology
DX: N85.4 Malposition of uterus (principal); N85.2 Hypertrophy of uterus; D25.9 Leiomyoma of uterus, unspecified; N92.4 Excessive bleeding in the premenopausal period; R93.89 Abnormal findings on diagnostic imaging of other specified body structures; R10.31 Right lower quadrant pain; Z98.891 History of uterine scar from previous surgery
CPT/HCPCS: 76830

== ENCOUNTER 2025-10-05 11:14 | Outpatient (CLI) | payer BC, SELFPAY ==
[2025-10-05 09:00] VITALS: BMI 31.8
--- NOTE | 2025-10-05 11:19 | ECG_ITS ---
APPROVED REPORT Exam: Resting ECG HR:71 bpm ECG Measurements Heart Rate 71 AXES RI 141 P 50 QRSd 84 QRS 137 QT 383 T 35 QTc 405 Conclusion SINUS RHYTHM POSSIBLE RIGHT VENTRICULAR HYPERTROPHY [SOME/ALL OF: PROMINENT R IN V1, LATE TRANSITION, RAD, MARLENE, SSS] ABNORMAL ECG UNCONFIRMED REPORT Electronically signed by : Lit Fuentes MD 10/05/2025 15:04:55
[2025-10-05 11:36] LABS: Hematocrit 45.5 % (37.0-47.0); Hemoglobin 15.6 g/dL (12.2-16.2); Immature Granulocytes % 0.4 %; Mean Corpuscular HGB Conc 34.3 g/dL (31.8-35.4); Mean Corpuscular Hemoglobin 32.1 pg (27.0-31.2); Mean Corpuscular Volume 93.6 fl (81-99); Nucleated Red Blood Cells % 0 %; Platelet Count 324 K/mm3 (142-424); Red Blood Count 4.86 M/mm3 (4.20-5.40); Red Cell Distribution Width-SD 43.9 fL; White Blood Count 5.5 K/mm3 (4.8-10.8)
[2025-10-05 11:53] LABS: Alanine Aminotransferase 44 U/L (12-78); Albumin Level 4.9 g/dl (3.5-5.0); Albumin/Globulin Ratio 1.8 (1.1-1.8); Alkaline Phosphatase 71 U/L (38-126); Anion Gap 9.2 mEq/L (5-15); Aspartate Amino Transferase 34 U/L (14-36); Bilirubin,Total 0.5 mg/dl (0.2-1.3); Blood Urea Nitrogen 12 mg/dl (7-17); Calcium 9.4 mg/dl (8.4-10.2); Carbon Dioxide 24 mmol/L (22.0-30.0); Chloride 106 mmol/L (98-107); Creatinine Clearance Estimated 105 mL/min (50-200); Creatinine,Serum 0.90 mg/dl (0.52-1.04); Estimated Glomerular Filt Rate 66 ml/min (>60); GFR (African American) 80 ML/MIN (>60); Globulin 2.7 g/dL (1.3-3.2); Glucose 99 mg/dl (74-100); Potassium 4.2 mmoL/L (3.5-5.1); Sodium 135 mmol/L (136-145); Total Protein,Serum 7.6 g/dl (6.3-8.2)
[2025-10-05 12:20] LABS: HCG Qualitative, Serum Negative (Negative)
== END 2025-10-05 23:59 | disposition home or self-care (01) ==
LOC: PREOP 11:15
PROVIDERS: PCP Family Medicine; Visit Provider Obstetrics & Gynecology
DX: Z01.810 Encounter for preprocedural cardiovascular examination (principal); Z01.812 Encounter for preprocedural laboratory examination; R94.31 Abnormal electrocardiogram [ECG] [EKG]
CPT/HCPCS: 80053; 84703; 85025; 93005

== ENCOUNTER 2025-10-11 06:01 | Day surgery (SDC) | payer BC, SELFPAY ==
[2025-10-05 14:16] VITALS: BMI 31.8
[2025-10-11] VITALS (10 sets, daily range): BP systolic 112–141; BP diastolic 62–88; PULSE 62–85; RESP 14–18; TEMP 36.4–36.6; O2SAT 92–97; BMI 31.8
[2025-10-11] MEDS: ACETAMINOPHEN 500MG TAB 1000 MG PO (06:31)
[2025-10-11] MEDS: LACTATED RINGERS 1000ML 1,000 ML 25 ML IV (06:32)
--- NOTE | 2025-10-11 07:01 | P.PNANES_ITS ---
[facility] Disclaimer: The information contained in this section may have been updated after the patient was seen, as this information can be updated by other users. Medical History Encounter for preoperative assessment Fatigue Abnormal weight gain Right lower quadrant abdominal pain Abnormal perimenopausal bleeding Hx of x1 Surgical History History of D&C Hx of section x2 Family History Other Afib Family history of stroke Heart disease Social History Smoking Status: Never smoker alcohol intake: never substance use type: denies use current occupational status: employed Travel in the last 8 weeks?: None do you feel safe at home: Yes victim of physical abuse: No victim of emotional abuse: No victim of sexual abuse: No Have you lived/traveled outside US in past 30 days?: No Contact w/someone who lives/traveled outside US past 30 days?: No Exposure to someone with infectious disease in past 14 days?: No Do you have a fever (greater than 100.4 F or 38 C)?: No Have you tested positive for COVID-19?: No Exposed to someone with COVID-19 in past 14 days?: No Do you have a sore throat?: No Do you have a cough?: No Do you have any weakness?: No Do you have any diarrhea?: No Are you experiencing any unusual bleeding?: No Do you have any muscle aches/pain?: No Do you have any abdominal pain?: No Are you experiencing loss of taste or smell?: No [facility] Anesthesia Checklist Patient Identification Patient Identification: Arm Band and Family Structural Data Admitted From: Home Planned Operative Procedure/s: Hysteroscopy. D & C. Myosure. Consent for Planned Operative Procedure(s) Verified: Yes Verified Documents: Surgical Consent and History and Physical NPO Status Verified Time NPO: 00:00 Additional verifications Patient : No Anesthesia Reactions: No Hx Blood Transfusions: No Blood Transfusion Reaction: No Cephalosporin Allergy: No Previous Colonoscopy: No Airway Assessment Mallampati Score:: Class II C-Spine Mobility Assessed: Yes TMJ Mobility Assessed: Yes Dentition: Good Dentition Neurological Assessment Level of Consciousness: Awake, Alert, Appropriate and Follows Commands Hx Seizures: No Numbness or tingling in extremities: No Anesthesia Plan Anesthesia Risk discussed: Yes ASA Class: I Anesthesia Type: General
[2025-10-11] MEDS: SODIUM CHLORIDE IRRIG SOLUTION 3,000 ML 25 ML IR (07:40)
--- NOTE | 2025-10-11 08:07 | P.PNANES_ITS ---
[facility] Anesthesia Record Part I Anesthesia Record I Intake, IV Amount: 550 Hydration: Adequate Estimated blood loss (mL): 0 Urine output (mL): 0 Blood Products used (#): none Blood Pressure: 116/76 SaO2: 92 Pulse Rate: 69 Airway Patency: Patent Respiratory Rate: 14 Temperature: 97.6 F Patient is:: Drowsy and Stable Stable to PACU at:: 08:05
--- NOTE | 2025-10-11 08:08 | P.OP_ITS ---
Date of procedure: 10/11/25 Pre-op Diagnosis:: 1. Abnormal uterine bleeding, perimenopausal Post-op Diagnosis:: 1. Abnormal uterine bleeding, perimenopausal 2. Thickened endometrium Procedure performed:: 1. Hysteroscopy with dilation and Myosure curettage Surgeon:: Lotus Flanagan DO Certified Physician'S Assistant(s):: N/a MOVIE PRODUCER:: Luciano Masters Anesthesia: GETA Estimated blood loss (mL): 0 Clinical Note:: Ms Anayeli Hernandez is a 49 yo P2013 who presents to [facility] for scheduled procedure. She complains of abnormal perimenopausal bleeding. She is taking norethindrone 5 mg BID. She tried to wean down to once daily but bleeding increased so she increased back to BID. Bleeding usually stops when taken BID however she noticed breakthrough bleeding with BID in July. She also reports intermittent RLQ tenderness. In August she started experiencing daily bleeding on Norethindrone 5 mg BID. She complains of significant weight gain, increased appetite and fatigue. She admits she can sleep 12 hours a day. Hot flashes are less but not gone with the norethindrone. Pelvic ultrasound 07/29/25 demonstrated: 1. Anteverted and axial bulky uterus. There are least 3 fibroids seen that measure up to 3.1 cm in size. 2. The endometrium is difficult to visualize but appears thickened and measures up to 23 mm. Suggest endometrial sampling. 3. There is a small amount of fluid within the scar. 4. The ovaries were not seen transvaginally or transabdominally. 5. No fluid in the cul-de-sac. Operative findings:: 1. On bimanual exam, uterus enlarged, normal shape, anteverted. No adnexal masses palpated 2. On hysteroscopic exam, bilateral tubal ostia easily visualized. Small possible submucosal fibroid vs polyp on posterior wall. Otherwise grossly normal appearing endometrium Operative note:: Risks, benefits and alternatives were discussed with the patient. Risks include but are not limited to bleeding, infection, uterine perforation and VTE. Patient voiced understanding and agreed to proceed. She was wheeled back to the operating room and placed under general anesthesia without difficulty. She was placed in dorsal lithotomy position and prepped and draped in the normal sterile fashion. Straight catheter was used to drain the bladder. A bimanual exam was performed. A weighted Auvard was placed in the vaginal vault. Single tooth tenaculum was placed on anterior lip of the cervix. Uterus sounded to 11. Sequential Celestino dilators were used to dilate the cervical os. Hysteroscope was inserted through the cervix without difficulty. Endometrial cavity was evaluated. See findings above. Pictures were taken. Myosure was inserted through the hysteroscope. Myosure curettage was performed per protocol in a 360 degree fashion under direct visualization. A moderate amount of tissue was obtained. Pictures were taken. Hysteroscope with Myosure was removed. Medium size sharp curette was then inserted through the cervix and into the uterine cavity. Sharp curettage was performed in a 360 degree fashion. Instruments were removed from the vagina. Tenaculum site was hemostatic Patient was awaken from anesthesia without difficulty. She was transported to recovery room in stable condition. Patient will be discharged home when awake and ambulating. She was given postop instructions as well as instructions to follow-up in the office in 2 weeks. Condition: stable Disposition: same day Specimens:: 1. Endometrial curettings Complications:: None
--- NOTE | 2025-10-11 11:10 | P.PNANES_ITS ---
[facility] Anesthesia Record Part II Anesthesia Record Part II Discharge Time: 08:35 Destination: Surgical Day Care (OP Surgery) PACU nurse assessment reviewed?: Yes Patient Condition:: Good Anesthesia Complications:: None Swallowing reflex intact?: Yes Airway Patency: Patent Cyanosis?: No Blood Pressure: 138/88 SaO2: 93 Respiratory Rate: 16 Pulse Rate: 74 Temperature: 97.6 F Mental Status: Alert & Oriented Pain level:: 0 Nausea and/or vomitting:: None Intake, IV Amount: 0 Hydration: Adequate
== END 2025-10-11 09:06 | disposition home or self-care (01) ==
PROVIDERS: PCP Family Medicine; Visit Provider Obstetrics & Gynecology
PROC: 0UDB8ZZ Extraction of Endometrium, Via Natural or Artificial Opening Endoscopic (ICD-10-PCS; CPT 58558; principal; 2025-10-11 07:30)
DX: N92.4 Excessive bleeding in the premenopausal period (principal); R93.89 Abnormal findings on diagnostic imaging of other specified body structures; R10.31 Right lower quadrant pain; Z79.3 Long term (current) use of hormonal contraceptives
CPT/HCPCS: 58558; J1100; J2003; J2250; J2405; J2704; J3010; J7120